=== PATIENT | female | born 1975 | race African-American/Black ===

== ENCOUNTER 2016-12-01 09:52 | Emergency (ER) | payer OTHER ==
[2016-12-01 10:00] VITALS: BP 222/107; BMI 50.9
--- NOTE | 2016-12-01 10:18 | DR.GENAD ---
HPI - PCP Primary Care Physician: NONE - Complaint/Symptoms Chief Complaint:: STOMACH PAIN FOR THREE DAYS "POSSIBLE BLADDER INFECTION - Source History Provided: Patient - Mode of Arrival Mode of Arrival: Ambulatory - Timing Onset of Chief Complaint: 11/29/16 PMH - PMH Past Medical History: Yes Past Medical History: Diabetes, Hypertension Past Surgical History: Yes Surgical History: - Family History History of Family Medical Conditions: Yes Family Medical History: Diabetes Mellitus, Cancer, Heart Failure, Hypertension - Social History Does patient currently use any type of tobacco product: Yes Have you used tobacco products in the last 12 months: Yes Type of Tobacco Use: Cigarettes How many years tobacco product used: 10 Does any household member use tobacco: No Alcohol Use: None Do you use any recreational Drugs:: No Lives With: Family Lives Where: Home - infectious screening In the last 2 months have you had wt loss of >10#?: NO Have you had fever, night sweats or hemotysis?: No Have you traveled outside the country in the last 6 months?: No Isolation: Standard ROS - Review of Systems Eyes: No Symptoms Reported ENTM: No Symptoms Reported Respiratoy: No Symptoms Reported Cardiovascular: No Symptoms Reported Gastrointestinal/Abdominal: No Symptoms Reported Genitourinary: No Symptoms Reported Neurological: No Symptoms Reported Musculoskeletal: Back Pain (Mild low back) Integumentary: No Symptoms Reported Hematologic/Lymphatic: No Symptoms Reported Endocrine: No Symptoms Reported Psychiatric: No Symptoms Reported All Other Systems: Reviewed and Negative PE - Vital Signs Vitals: Temperature 98.7 F Pulse Rate 55 Respiratory Rate 18 Blood Pressure 222/107 O2 Sat by Pulse Oximetry 99 - General Limitations: No Limitations General Appearance: Alert - Head Head Exam: Normal Inspection - Eyes Eye exam: Normal Appearance - ENT ENT Exam: Normal Exam External Ear Exam: Normal External Inspection TM/Canal Exam: Bilateral Normal Nose Exam: Normal Nose Exam Mouth Exam: Normal Inspection Throat Exam: Normal Inspection - Neck Neck Exam: Normal Inspection - Chest Chest Inspection: Normal Inspection - Respiratory Respiratory Exam: Normal Lung Sounds Bilat Respiratory Exam: Bilateral Clear to Auscultation - Cardiovascular Cardiovascular Exam: Regular Rate - Abdominal Exam Abdominal Exam: Normal Inspection Abdominal Tenderness: negative: RUQ, RLQ, LUQ, LLQ, Epigastrium, Suprapubic, Diffuse, Mild, Moderate, Severe, Other - Extremities Extremities Exam: Normal Inspection - Back Back Exam: Vertebral Tenderness (mid low back) - Neurologic Neurological Exam: Alert, Oriented X3, CN II-XII Intact - Psychiatric Psychiatric Exam: Normal Affect ROR - Labs Reviewed Laboratory: Specimen Type Clean catch urine 12/01/16 10:19 Urine Color Yellow (YELLOW) 12/01/16 10:19 Urine Appearance Clear (CLEAR) 12/01/16 10:19 Urine pH 8.0 (5.0 - 8.0) 12/01/16 10:19 Ur Specific [place] 1.015 (1.000-1.030) 12/01/16 10:19 Urine Protein Negative (NEGATIVE) 12/01/16 10:19 Urine Glucose (UA) Negative (NEGATIVE) 12/01/16 10:19 Urine Ketones Negative (NEGATIVE) 12/01/16 10:19 Urine Occult Blood 4+ (NEGATIVE) 12/01/16 10:19 Urine Nitrite Negative (NEGATIVE) 12/01/16 10:19 Urine Bilirubin Negative (NEGATIVE) 12/01/16 10:19 Urine Urobilinogen Normal (NORMAL) 12/01/16 10:19 Ur Leukocyte Esterase 1+ (NEGATIVE) 12/01/16 10:19 Urine RBC 03 - 06 /HPF (NEGATIVE) 12/01/16 10:19 Urine WBC 02 - 05 /HPF (NEGATIVE) 12/01/16 10:19 Ur Squamous Epith Cells Moderate /HPF (NEGATIVE) 12/01/16 10:19 Amorphous Sediment Trace /HPF (NEGATIVE) 12/01/16 10:19 Urine Bacteria Trace /HPF (NEGATIVE) 12/01/16 10:19 Urine Trichomonas Few /HPF (NEGATIVE) 12/01/16 10:19 Ur Culture Indicated? No/not indicated 12/01/16 10:19 - XRAY XRAY Interpreted by: Radiologist (Lumbar spine. No acute fracture or spondylolisthesis within the lumbar spine. Mild multilevel spondylosis) - Diagnosis Discharge Problem: Spondylosis of lumbar spine - Discharge Plan Condition: Stable - Follow ups/Referrals Follow ups/Referrals: [facility],None [Primary Care Provider] - 3 days - Instructions
[2016-12-01 10:33] LABS: BILIRUBIN,URINE NEGATIVE (NEGATIVE); BLOOD/HEMOGLOBIN,URINE 4+ (NEGATIVE); GLUCOSE, URINE NEGATIVE (NEGATIVE); KETONES,URINE NEGATIVE (NEGATIVE); LEUKOCYTE ESTERASE ,URINE 1+ (NEGATIVE); NITRITES,URINE NEGATIVE (NEGATIVE); PROTEIN,URINE NEGATIVE (NEGATIVE); UROBILINOGEN,URINE NORMAL (NORMAL)
[2016-12-01 10:49] LABS: AMORPHOUS SEDIMENT,UR TRACE /HPF (NEGATIVE); APPEARANCE,URINE CLEAR (CLEAR); BACTERIA,URINE TRACE /HPF (NEGATIVE); COLOR,URINE YELLOW (YELLOW); SQUAMOUS EPITHELIAL CELL,UR MODERATE /HPF (NEGATIVE)
[2016-12-01 10:50] LABS: TRICHOMONAS,URINE FEW /HPF (NEGATIVE)
--- NOTE | 2016-12-01 11:29 | RAD ---
Three views of the lumbar spine Indication: Lower back pain after trauma Findings: No fracture or spondylolisthesis within the lumbar spine. Distended spondylolysis. There i s mild multilevel spondylosis. SI joints are intact. Impression: No acute fracture or spondylolisthesis within the lumbar spine. Mild multilevel spondylo sis. Reported By:
== END 2016-12-01 12:10 | disposition home or self-care (01) ==
LOC: ER 10:07
DX: M47.896 Other spondylosis, lumbar region (principal)
CPT/HCPCS: 72100; 81001; 99282; 99283